=== PATIENT | male | born 1950 | race Caucasian/White ===

== ENCOUNTER → 2018-04-18 | Day surgery (SDC) | payer MEDICARE ==
[2018-04-17 10:43] LABS: BASOPHILS # (AUTO) 0.1 (0.0-0.1); EOSINOPHILS # (AUTO) 0.1 (0.0-0.4); EOSINOPHILS % 1.2 % (0.0-6.0); HEMATOCRIT 48.9 % (38.2-49.6); LYMPHOCYTES # (AUTO) 2.9 (1.0-3.2); LYMPHOCYTES % 37.6 % (18.0-39.1); MEAN CORPUSCULAR HEMOGLOBIN 32.3 pg (28-32); MEAN CORPUSCULAR HGB CONC 34.8 g/dL (31-35); MEAN CORPUSCULAR VOLUME 92.8 fL (81-99); MONOCYTES # (AUTO) 0.6 (0.2-0.8); MONOCYTES % 8.2 % (4.4-11.3); NEUTROPHILS # (AUTO) 3.9 (2.1-6.9); NEUTROPHILS % 50.7 % (38.7-80.0); PLATELET COUNT 230 x10e3/uL (140-360); RED BLOOD COUNT 5.27 x10e6/uL (4.3-5.7)
[2018-04-17 10:58] LABS: ANION GAP 11.3 mmol/L (8-16); BLOOD UREA NITROGEN 12 mg/dL (7-26); BUN/CREATININE RATIO 14 (6-25); CALCIUM 9.6 mg/dL (8.4-10.2); CARBON DIOXIDE 29 mmol/L (22-29); CHLORIDE 100 mmol/L (98-107); CREATININE, SERUM 0.83 mg/dL (0.72-1.25); EST GLOMERULAR FILTRATION RATE > 60 ML/MIN (60-); GLUCOSE 94 mg/dL (74-118); POTASSIUM 4.3 mmol/L (3.5-5.1); SODIUM 136 mmol/L (136-145)
--- NOTE | 2018-04-17 11:22 | Diagnostic Imaging Report ---
EXAMINATION: PA and lateral views of the chest. COMPARISON: None CLINICAL HISTORY: Preoperative study for right knee replacement DISCUSSION: The lungs are well-inflated. Calcified granuloma left upper lobe and right perihilar region. Linear opacity in the lingula may reflect scar or subsegmental atelectasis. No airspace consolidation or effusion. Tortuous thoracic aorta with otherwise normal cardiomediastinal contour. No acute osseous abnormalities. IMPRESSION: No acute cardiopulmonary abnormalities. Signed by: Dr. Emir Nugent M.D. on 04/17/2018 11:19 AM
[~2018-04-18] MED LIST: 12 HOUR NASAL R15 ML; CEFAZOLIN SOD 1 GM VIAL ONE; DEXAMETHASONE SOD PHOS INJ 4 MG/ML VIAL ONE; EPHEDRINE SULFATE INJ 50 MG/10 ML SYR ONE; FENTANYL CITRATE/PF 100MCG/2 ML INJ ONE; HYDROCHLOROTHIA25 MG PO; KETOROLAC TROMETHAMINE 30 MG/ML VIAL ONE; LIDOCAINE HCL 2% LOCAL INJ 5 ML SDV VIAL INJ ONE; MIDAZOLAM HCL 2 MG/2 ML VIAL ONE; ONDANSETRON HCL INJ 2 MG/ML VIAL ONE; PROPOFOL IV EMULSION 10 MG/ML 20 ML VIAL ONE; SEVOFLURANE INHAL SOLN 250 ML PEN BTL ONE; SOMA350 MG PO; TESTOSTERO200 MG/11 IM; TYLENOL WITH C1 EACH PO; VASOTEC10 MG PO
[2018-04-18 10:45] VITALS: BP 137/94
--- NOTE | 2018-04-18 12:56 | Operative Report ---
DATE OF PROCEDURE: April 18, 2018 ELECTRIC PLATER: Abdulkadir Ardon PA-C The patient was brought to the operating room for induction of anesthesia. Throughout this case, my PA's assistance was necessary for retraction of soft tissue and positioning of the extremity. This allows for efficient and technically successful execution of the operation and is considered medically necessary. PREOPERATIVE DIAGNOSIS: Medial meniscal tear. POSTOPERATIVE DIAGNOSES 1. Medial meniscal tear. 2. 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 PROCEDURES PERFORMED 1. Right knee arthroscopy. 2. Partial medial meniscectomy. 3. Chondroplasty of the patellofemoral groove. 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 He developed mechanical symptoms after a fall. He has failed conservative management and would like to proceed with arthroscopy. The risks and benefits have been discussed. Realistic expectations have been stressed. The patient states he understands and wishes to proceed. DESCRIPTION OF PROCEDURE: The patient was brought to the operating room and placed under general anesthetic. His right lower extremity was prepped and draped in a sterile manner. A preoperative time out was performed. The extremity had been exsanguinated and the proximal tourniquet was inflated to 300 mmHg. Standard arthroscopy portals were established. The knee was insufflated with sterile saline and systematically inspected. The patellofemoral groove showed some grade II changes of chondromalacia of the undersurface of the patella. There was a complex tear of the posterior horn of the medial meniscus. The articular surfaces of the medial femoral condyle and medial tibial plateau were surprisingly well preserved. The cruciate ligaments were intact and stable. The lateral compartment was unremarkable. Attention was returned to the medial compartment. A partial medial meniscectomy was performed using a combination of biting forceps and a mechanical shaver. Before and after photographs were taken. The meniscus was debrided back to a stable margin. All of the unstable fragments of cartilage were also debrided off of the undersurface of the patella. The knee was thoroughly irrigated. The arthroscopic instruments were removed. The portal incisions were closed with nylon stitches. A sterile bandage was applied. He was extubated and transported to the recovery room in stable condition. There was no blood loss and all needle and sponge counts were correct. Job#: [id number] BERE
--- OUTSIDE RECORDS SUMMARY | 2018-04-25 12:15 | XMS REPORT ---
Author [facility] Address Unknown Phone Unavailable Care Team Providers Care Gas Furnace Installer Name Role Phone MAG RICHARD Unavailable Unavailable Problems This patient has no known problems. Allergies, Adverse Reactions, Alerts This patient has no known allergies or adverse reactions. Medications This patient has no known medications. Results Test Description Test Time Test Comments Text Results Atomic Results Result Comments CHEST 2 VIEWS 2018-04-17 11:16:00 [place] [address] Patient Name: MAG GUERRA MR #: [id number] : 1950 Age/Sex: 67/M Req #: [id number] Adm Physician: Ordered by: MAG RICHARD MD Report #: [id number] Location: OR Room/Bed: Procedure: [id number] DX/CHEST 2 VIEWS Exam Date: 04/17/18 Exam Time: 1048 REPORT STATUS: Signed EXAMINATION: PA and lateral views of the chest. COMPARISON: None CLINICAL HISTORY: Preoperative study for right knee replacement DISCUSSION: The lungs are well-inflated. Calcified granuloma left upper lobe and right perihilar region. Linear opacity in the lingula may reflect scar or subsegmental atelectasis. No airspace consolidation or effusion. Tortuous thoracic aorta with otherwise normal cardiomediastinal contour. No acute osseous abnormalities. IMPRESSION: No acute cardiopulmonary abnormalities. Signed by: Dr. Mag Becker M.D. on 04/17/2018 11:19 AM Dictated By: MAG BECKER MD 111 Transcribed By: MERRILL on 04/17/181118 COPY TO: MAG RICHARD MD
== END | disposition home or self-care (01) ==
LOC: OR 06:21
PROVIDERS: ATTEND Specialist
DX: S83.231A Complex tear of medial meniscus, current injury, right knee, initial encounter (principal); M17.11 Unilateral primary osteoarthritis, right knee; M22.41 Chondromalacia patellae, right knee; I10 Essential (primary) hypertension; E66.9 Obesity, unspecified; I45.10 Unspecified right bundle-branch block; J34.89 Other specified disorders of nose and nasal sinuses; F41.9 Anxiety disorder, unspecified; X50.1XXA Overexertion from prolonged static or awkward postures, initial encounter; Y92.003 Bedroom of unspecified non-institutional (private) residence as the place of occurrence of the external cause; Z88.8 Allergy status to other drugs, medicaments and biological substances; Z91.041 Radiographic dye allergy status; Z01.810 Encounter for preprocedural cardiovascular examination; Z01.812 Encounter for preprocedural laboratory examination; Z01.818 Encounter for other preprocedural examination; Z68.36 Body mass index [BMI] 36.0-36.9, adult
CPT/HCPCS: 29881; 36415; 71046; 80048; 85025; 93005; J0690; J1100; J1885; J2001; J2250; J2405

== ENCOUNTER 2022-10-28 12:24 | Inpatient (IN) | payer MEDICARE ==
[~2022-10-28] VITALS: Ht 172.7 cm; Wt 104.0 kg
[2022-10-28] VITALS (11 sets, daily range): BP systolic 131–169; BP diastolic 77–114
[~2022-10-28 12:24] MED LIST changes: -CEFAZOLIN SOD 1 GM VIAL ONE; -DEXAMETHASONE SOD PHOS INJ 4 MG/ML VIAL ONE; -EPHEDRINE SULFATE INJ 50 MG/10 ML SYR ONE; -FENTANYL CITRATE/PF 100MCG/2 ML INJ ONE; -KETOROLAC TROMETHAMINE 30 MG/ML VIAL ONE; -LIDOCAINE HCL 2% LOCAL INJ 5 ML SDV VIAL INJ ONE; -MIDAZOLAM HCL 2 MG/2 ML VIAL ONE; -ONDANSETRON HCL INJ 2 MG/ML VIAL ONE; -PROPOFOL IV EMULSION 10 MG/ML 20 ML VIAL ONE; -SEVOFLURANE INHAL SOLN 250 ML PEN BTL ONE
[2022-10-28 13:37] LABS: BASOPHILS # (AUTO) 0.1 (0.0-0.1); BASOPHILS % 0.8 % (0.0-1.0); EOSINOPHILS # (AUTO) 0.1 (0.0-0.4); EOSINOPHILS % 1.5 % (0.0-6.0); HEMATOCRIT 50.7 % (38.2-49.6); HEMOGLOBIN 16.9 g/dL (14.0-18.0); LYMPHOCYTES # (AUTO) 2.3 (1.0-3.2); LYMPHOCYTES % 26.2 % (18.0-39.1); MEAN CORPUSCULAR HEMOGLOBIN 32.9 pg (28-32); MEAN CORPUSCULAR HGB CONC 33.3 g/dL (31-35); MEAN CORPUSCULAR VOLUME 98.6 fL (81-99); MONOCYTES # (AUTO) 0.8 (0.2-0.8); MONOCYTES % 9.1 % (4.4-11.3); NEUTROPHILS # (AUTO) 5.5 (2.1-6.9); NEUTROPHILS % 61.6 % (38.7-80.0); PLATELET COUNT 208 x10e3/uL (140-360); RED BLOOD COUNT 5.14 x10e6/uL (4.3-5.7); RED CELL DISTRIBUTION WIDTH 13.4 % (11.7-14.4)
[2022-10-28] MEDS ORDERED: CYCLOBENZAPRINE5 MG PO (13:45)
[2022-10-28] MEDS ORDERED: AMBIEN5 MG PO (13:45)
[2022-10-28] MEDS ORDERED: ASPIRIN325 MG PO (13:45)
[2022-10-28] MEDS ORDERED: ACETAMINOPHEN-1 EAC4 PO (13:45)
[2022-10-28] MEDS ORDERED: HEPARIN SOD/SOD CHLORIDE 2,000 ML ONE (13:53)
[2022-10-28] MEDS ORDERED: HEPARIN SOD (PORCINE) 1000 UNIT/ML 30ML ONE (13:53)
[2022-10-28] MEDS ORDERED: LIDOCAINE HCL 2% LOCAL 20 ML VIAL ONE (13:53)
[2022-10-28] MEDS ORDERED: IOPAMIDOL 370 MG/ML 100 ML INFUS..BTL INJ ONE ×2 (13:53→14:32)
[2022-10-28] MEDS ORDERED: SODIUM CHLORIDE 0.9% 1000ML 1,000 ML ONE ×2 (13:53→21:34)
[2022-10-28] MEDS ORDERED: NITROGLYCERIN/D5W 200 MCG/ML 250 ML ONE (13:53)
[2022-10-28] MEDS ORDERED: FENTANYL CITRATE/PF 100MCG/2 ML INJ ONE ×2 (13:54→15:33)
[2022-10-28] MEDS ORDERED: MIDAZOLAM HCL 2 MG/2 ML VIAL ONE ×3 (13:54→15:32)
[2022-10-28] MEDS ORDERED: ALTEPLASE 50 MG/VIAL (29 MILLION IU) ONE (14:36)
[2022-10-28] MEDS ORDERED: SODIUM CHLORIDE 0.9% 100 ML ONE (14:37)
[2022-10-28] MEDS ORDERED: HEPARIN SOD/SOD CHLORIDE 1,000 ML ONE (14:44)
[2022-10-28] MEDS ORDERED: HEPARIN 25,000 UNIT/D5W 250ML 1,500 UNIT in DEXTROSE 5% 250ML 250 ML IV SCH ×2 (16:15→16:45)
[2022-10-28] MEDS ORDERED: HEPARIN 25,000 UNIT DRIP IV ONE (16:23)
[2022-10-28 16:46] LABS: INR 1.04; PROTHROMBIN TIME 14.1 seconds (11.9-14.5)
[2022-10-28 16:54] LABS: ALANINE AMINOTRANSFERASE 18 IU/L (0-55); ALBUMIN 3.6 g/dL (3.5-5.0); ALBUMIN/GLOBULIN RATIO 1.1 (0.8-2.0); ALKALINE PHOSPHATASE 77 IU/L (40-150); ANION GAP 14.7 mmol/L (8-16); BLOOD UREA NITROGEN 10 mg/dL (7-26); BUN/CREATININE RATIO 14 (6-25); CALCIUM 8.8 mg/dL (8.4-10.2); CARBON DIOXIDE 22 mmol/L (22-29); CHLORIDE 103 mmol/L (98-107); CREATINE KINASE 267 IU/L (30-200); GLUCOSE 93 mg/dL (74-118); POTASSIUM 3.7 mmol/L (3.5-5.1); SODIUM 136 mmol/L (136-145)
[2022-10-28 17:02] LABS: PARTIAL THROMBOPLASTIN TIME > 200.0 seconds (23.8-35.5)
[2022-10-28] MEDS ORDERED: ZOLPIDEM TARTRATE 5 MG TAB PO PRN (19:30)
[2022-10-28] MEDS: ACETAMINOPHEN/CODEINE 300MG - 30MG TAB PO PRN (19:51)
[2022-10-28] MEDS: OXYMETAZOLINE HCL 0.05% NAS 1 SPRAY BTL SCH (19:58)
[2022-10-29] VITALS (13 sets, daily range): BP systolic 123–173; BP diastolic 69–112
[2022-10-29 03:57] LABS: BASOPHILS # (AUTO) 0.1 (0.0-0.1); BASOPHILS % 0.8 % (0.0-1.0); EOSINOPHILS # (AUTO) 0.1 (0.0-0.4); EOSINOPHILS % 1.3 % (0.0-6.0); HEMATOCRIT 47.2 % (38.2-49.6); HEMOGLOBIN 16.1 g/dL (14.0-18.0); MEAN CORPUSCULAR HEMOGLOBIN 32.7 pg (28-32); MEAN CORPUSCULAR HGB CONC 34.1 g/dL (31-35); MEAN CORPUSCULAR VOLUME 95.9 fL (81-99); MONOCYTES # (AUTO) 0.7 (0.2-0.8); MONOCYTES % 9.2 % (4.4-11.3); NEUTROPHILS # (AUTO) 4.7 (2.1-6.9); PLATELET COUNT 165 x10e3/uL (140-360); RED BLOOD COUNT 4.92 x10e6/uL (4.3-5.7); RED CELL DISTRIBUTION WIDTH 13.3 % (11.7-14.4)
[2022-10-29 04:14] LABS: ALBUMIN 3.4 g/dL (3.5-5.0); ALBUMIN/GLOBULIN RATIO 0.9 (0.8-2.0); ANION GAP 13.8 mmol/L (8-16); CREATININE, SERUM 0.69 mg/dL (0.72-1.25); POTASSIUM 3.8 mmol/L (3.5-5.1)
[2022-10-29] MEDS ORDERED: ZOLPIDEM TARTRATE 5 MG TAB PO PRN (04:30)
[2022-10-29] MEDS ORDERED: IOPAMIDOL 370 MG/ML 100 ML INFUS..BTL INJ ONE ×2 (07:13→12:48)
[2022-10-29] MEDS ORDERED: SODIUM CHLORIDE 0.9% 1000ML 1,000 ML ONE ×2 (07:13→11:09)
[2022-10-29] MEDS ORDERED: HEPARIN SOD (PORCINE) 1000 UNIT/ML 30ML ONE (07:13)
[2022-10-29] MEDS ORDERED: HEPARIN SOD/SOD CHLORIDE 2,000 ML ONE (07:13)
[2022-10-29] MEDS ORDERED: LIDOCAINE HCL 2% LOCAL 20 ML VIAL ONE (07:13)
[2022-10-29] MEDS: ACETAMINOPHEN/CODEINE 300MG - 30MG TAB PO PRN (07:14)
[2022-10-29] MEDS ORDERED: NITROGLYCERIN/D5W 200 MCG/ML 250 ML ONE (07:14)
[2022-10-29] MEDS ORDERED: MIDAZOLAM HCL 2 MG/2 ML VIAL ONE ×5 (07:51→10:01)
[2022-10-29] MEDS ORDERED: FENTANYL CITRATE/PF 100MCG/2 ML INJ ONE ×3 (07:51→10:01)
[2022-10-29] MEDS ORDERED: HEPARIN SOD/SOD CHLORIDE 1,000 ML ONE (08:56)
[2022-10-29] MEDS: OXYMETAZOLINE HCL 0.05% NAS 1 SPRAY BTL SCH (09:00)
[2022-10-29] MEDS ORDERED: ALTEPLASE RECOMBINANT 2 MG/2 ML VIAL ONE (09:18)
[2022-10-29] MEDS ORDERED: VERAPAMIL HCL 2.5 MG/ML 2 ML VIAL ONE (09:33)
[2022-10-29] MEDS ORDERED: HEPARIN 25,000 UNIT DRIP IV ONE (10:25)
[2022-10-29] MEDS ORDERED: ALTEPLASE 50 MG/VIAL (29 MILLION IU) IV STA (10:27)
[2022-10-29] MEDS ORDERED: ALTEPLASE RECOMBINANT 8 MG in DEXTROSE 5% 250ML 250 ML IV SCH (11:00)
[2022-10-29] MEDS ORDERED: HYDROCHLOROTHIAZIDE 25 MG TAB PO SCH (13:15)
[2022-10-29] MEDS ORDERED: ENALAPRIL MALEATE 10 MG TAB PO SCH (13:15)
[2022-10-29] MEDS ORDERED: HYDRALAZINE HCL 20 MG/ML VIAL IV PRN (13:15)
[2022-10-29] MEDS ORDERED: Morphine 4mg INJECTION 4 MG/ML INJ IV ONE (16:15)
== END 2022-10-29 16:00 | disposition short-term general hospital (02) | DRG 254 ==
LOC: ER 12:45 → ERHOLD 13:19 → ICU 16:59
PROVIDERS: ADMIT Internal Medicine; ATTEND Internal Medicine
PROC: 047K3ZZ Dilation of Right Femoral Artery, Percutaneous Approach (ICD-10-PCS; principal; 2022-10-28)
PROC: 047R3ZZ Dilation of Right Posterior Tibial Artery, Percutaneous Approach (ICD-10-PCS; 2022-10-28)
PROC: B41D1ZZ Fluoroscopy of Aorta and Bilateral Lower Extremity Arteries using Low Osmolar Contrast (ICD-10-PCS; 2022-10-28)
DX: I70.221 Atherosclerosis of native arteries of extremities with rest pain, right leg (principal); R19.00 Intra-abdominal and pelvic swelling, mass and lump, unspecified site; M19.91 Primary osteoarthritis, unspecified site; I10 Essential (primary) hypertension; K21.9 Gastro-esophageal reflux disease without esophagitis; G89.29 Other chronic pain; E66.09 Other obesity due to excess calories; Z68.34 Body mass index [BMI] 34.0-34.9, adult; Z20.822 Contact with and (suspected) exposure to COVID-19
CPT/HCPCS: 0223U; 36247; 36415; 37211; 75625; 75710; 76937; 80053; 82550; 82553; 82948; 84484; 85025; 85610; 85730; 93005; 99152; 99153; 99252; 99285; C1757; C1766; C1769; C1887; C1894; J1644; J2001; J2250; J2270; J2997; J7030; J7050; Q9967